=== PATIENT | male | born 1990 | race Caucasian/White ===

== ENCOUNTER → 2018-04-04 15:56 | Outpatient (CLI) | payer OTHER, MEDICAID, SELFPAY ==
--- NOTE | 2018-04-04 15:59 | DI.US.S_ITS ---
PROCEDURE: US SCROTUM INDICATIONS: TESTICULAR PAIN TECHNIQUE: Real-time scanning was performed of the scrotum and testicles, with image documentation. Color and pulse Doppler interrogation was performed of both testicles. COMPARISON: [facility], , TESTICLE IMAGING, 03/02/2017, 13:10. FINDINGS: Right: Testicle is normal in size at 2.3 x 3.3 x 5.0 cm, and homogenous in echotexture. Epididymis is normal in overall size and morphology. No hydrocele or varicoceles. Overlying scrotal skin is normal in thickness. Left: Testicle is normal in size at 2.4 x 3.6 x 4.8 cm, and homogeneous in echotexture. Epididymis is normal in overall size and morphology. No hydrocele or varicoceles. Overlying scrotal skin is normal in thickness. Doppler: Color and pulse Doppler demonstrate normal and symmetric arterial flow in both testicles. IMPRESSION: Normal testicular sonogram. As previously described, intermittent testicular torsion cannot be excluded on this exam. Imaging must be performed during episode of acute pain. Dictated by: Alfred Palacios M.D. on 04/04/2018 at 16:56 Approved by: Alfred Palacios M.D. on 04/04/2018 at 17:00
== END ==
PROVIDERS: Visit Provider Physician Assistant
DX: N50.819 Testicular pain, unspecified (principal)
CPT/HCPCS: 76870

== ENCOUNTER 2018-05-26 16:00 | Outpatient (RCR) | payer OTHER, MEDICAID, SELFPAY ==
--- NOTE | 2018-01-13 11:20 | PT.OTN ---
Current Diagnoses Stiffness of left ankle, not elsewhere classified (01/13/18) Muscle weakness (generalized) (01/13/18) Other abnormalities of gait and mobility (01/13/18) Nondisplaced fracture of fifth metatarsal bone, left foot, initial encounter for closed fracture (01/13/18) Transition note: On January 11, 2018 our therapy services consisting of Speech, Occupational, and Physical Therapy transitioned from the [employer] electronic documentation system to a new [employer] electronic documentation system.?? All documentation prior to January 11 can be found under [employer] saved data. From January 11 forward all medical record documentation will be in [employer] 6.1.
--- NOTE | 2018-01-14 11:03 | PT.OTN ---
Current Diagnoses Stiffness of left ankle, not elsewhere classified (01/14/18) Muscle weakness (generalized) (01/14/18) Other abnormalities of gait and mobility (01/14/18) Nondisplaced fracture of fifth metatarsal bone, left foot, initial encounter for closed fracture (01/14/18) Physical Therapy Treatment Note PT-OP-A Visit Information Start: 01/14/18 08:49 Freq: Status: Active Protocol: Activity Type Activity Date Activity User E-Sign Co-Sign Detail Recorded Client Recorded Date Recorded By Document 01/14/18 09:05 [facility] [email or web address] 01/14/18 11:02 [facility] 01/14/18 09:05 Out-Patient Physical Therapy Visit Information [Visit Information] -Visit Type Treatment Note -Visit Start Time 09:05 -Visit Stop Time 09:45 -Total Visit Minutes 40 -Visit Number 07/06 -Number of SAFETY INTERN Visits 0 PT-OP-C Subjective Start: 01/14/18 08:49 Freq: Status: Active Protocol: Activity Type Activity Date Activity User E-Sign Co-Sign Detail Recorded Client Recorded Date Recorded By Document 01/14/18 09:05 [facility] [email or web address] 01/14/18 11:02 [facility] 01/14/18 09:05 OP-PT Subjective [Patient Comments] -Patient Comments Pt reports overall he feels like he is doing well. He is not back to running or jumping per MD recommendations . Reports some pain in plantar fascia, but otherwise no pain on lateral L foot at or around surgical region. -Patient Reported Progress Improving PT-OP-K Range of Motion Start: 01/14/18 08:49 Freq: Status: Active Protocol: Activity Type Activity Date Activity User E-Sign Co-Sign Detail Recorded Client Recorded Date Recorded By Document 01/14/18 09:05 [facility] [email or web address] 01/14/18 11:02 [facility] 01/14/18 09:05 Ankle and Foot Goniometric Range of Motion [Ankle and Foot] Measured in Degrees Left Active -Ankle/Foot ROM WFL Yes -Testing Position Supine -Dorsiflexion with Knee Extended 12 -Plantarflexion 50 -Inversion 36 -Eversion 17 PT-OP-Q Treatments Start: 01/14/18 08:49 Freq: Status: Active Protocol: Activity Type Activity Date Activity User E-Sign Co-Sign Detail Recorded Client Recorded Date Recorded By Document 01/14/18 09:05 [facility] [email or web address] 01/14/18 11:02 [facility] 01/14/18 09:05 Therapeutic Exercises [Prone Exercises] 1 -Prone Exercise Name soleus stretch -Side left -Reps/Minutes 2 min. [Sitting Exercises] 1 -Sitting Exercise Name Ankle PF (L) -Side left -Resistance L5 band -Reps/Minutes 1x20 [Standing Exercises] 2 -Standing Exercise Name Step up ( lateral and cross-over) on 8 step -Side bilateral -Equipment Used Black with blue sports cord -Reps/Minutes 10 min. 1 -Standing Exercise Name Gastroc stretch -Side bilateral -Equipment Used ASTRID -Reps/Minutes 2 min Manual Therapy Treatment [Soft Tissue Mobilization] 3 -Body Location L achilles tendon -Mobilization Type Cross-Friction -Intensity/Depth Moderate -Body Position Prone -Comments 6 min. 2 -Body Location L plantar fascia -Mobilization Type Rolling -Intensity/Depth Deep -Body Position Supine -Comments 6 min. 1 -Body Location L gastoc and soleus -Mobilization Type Rolling -Intensity/Depth Deep -Body Position Prone -Comments 10 min [Joint Mobilizations] 1 -Joint 1st ray -Direction inf/superior -Grade III -Body Position Supine -Reps/Duration 2 min. PT-OP-T Assessment and Plan Start: 01/14/18 08:49 Freq: Status: Active Protocol: Activity Type Activity Date Activity User E-Sign Co-Sign Detail Recorded Client Recorded Date Recorded By Document 01/14/18 09:05 [facility] [email or web address] 01/14/18 11:02 [facility] 01/14/18 09:05 Physical Therapy Assessment [Assessment Summary] -Assessment Pt's L ankle ROM appears to be at normal ranges, and reports no pain with Theraband resistance performing ankle PF. Pt is yet to be cleared for plyometrics, running, and other activities which the pt could perform prior to this injury. Pt with hypomobility of the first ray on the L foot. Physical Therapy Plan [Frequency and Duration] -Frequency of Treatment 2x/Week -Duration of Treatment 2 months -Plan of Care Start Date 12/15/17 -Plan of Care End Date 02/13/18 [Next Visit Focus/Plan] -Next Visit Plan Progress LE strength, proprioception. Progress to higher level activities when cleared by
--- NOTE | 2018-05-06 09:45 | PT.OPPOC ---
Current Diagnoses Stiffness of left ankle, not elsewhere classified (05/06/18) Muscle weakness (generalized) (05/06/18) Other abnormalities of gait and mobility (05/06/18) Nondisplaced fracture of fifth metatarsal bone, left foot, initial encounter for closed fracture (05/06/18) Provider Visit Care Team Role Provider Type Emili Fisher MD Attending Provider Physician Primary Care Provider Specialty: Orthopedic Surgery Address: [address] [place] [address], [place], [address] Email: Plan Of Care PT-OP-T Assessment and Plan Start: 01/14/18 08:49 Freq: Status: Active Protocol: Document 05/06/18 09:45 [facility] (Rec: 05/08/18 17:19 [facility] [email or web address]) Physical Therapy Assessment Impairments Impairments Activity Tolerance ROM Strength Other Concerns Barriers to Rehabilitation prolonged/delayed healing Goals Three Impairment Recreational activities Group Home Goal (LTG) Return to full participation in basketball and running outdoors without pain or limitations to return to prior level of function. LTG Duration 6 weeks. Two Impairment L ankle weakness Associate Spa Director Goal (LTG) 5/5 ankle inversion and eversion with MMT for ankle stabilization and decrease recurring injury risk. LTG Duration 6 weeks One Impairment L ankle eversion ROM Associate Spa Director Goal (LTG) 15 degrees L ankle eversion AROM LTG Duration 6 weeks Assessment Summary Assessment Pt's L ankle eversion AROM presents outside of normal range, likely due to not participating in his ROM activities of his HEP and not participating in recreational activities. Pt's strength is still limited in eversion and eversion, and should continue to progress this with his HEP. Pt is not yet back to his prior recreational activity levels, and would greatly benefit from skilled physical therapy progression of exercise/activities to return to running and participating in basketball without restriction. Due to pt's recurring ankle sprains ( inversion sprains) he would benefit form an ankle brace/ stabilizer to assist with increased ankle stabilization until his ankle and LE stability is normalized. Physical Therapy Plan Frequency and Duration Frequency of Treatment 1x/Week Duration of Treatment 6 weeks Plan of Care Start Date 05/06/18 Plan of Care End Date 06/17/18 Therapeutic Interventions Therapeutic Interventions Home Exercise Program Joint Mobilizations Manual Therapy Neuromuscular Re-education Self-Care/Home Management Soft Tissue Mobilization Taping Therapeutic Activities Therapeutic Exercises Modalities Cold Pack/Ice Massage Electric Stimulation Hot Packs Ultrasound Other Referrals/Consults Referrals/Consults Recommended L ankle brace/stabilizer for return to recreational activities and assist with stabilization of L ankle. Next Visit Focus/Plan Next Note Type Treatment Note Next Visit Plan progress L ankle strength, light plyometrics->progressing as tolerated, treadmill/ running program initiation. Plan of Care Dates Plan of Care Start Date 05/06/18 Plan of Care End Date 06/17/18 Please Sign and Return: I have reviewed this Plan of Care and certify that the skilled therapy services above are required to meet the patient?s needs. Physician Signature Date Printed Name and Credentials Clinical Instructor Signature Printed Name and Credentials
--- NOTE | 2018-05-06 09:45 | PT.OTN ---
Current Diagnoses Stiffness of left ankle, not elsewhere classified (05/06/18) Muscle weakness (generalized) (05/06/18) Other abnormalities of gait and mobility (05/06/18) Nondisplaced fracture of fifth metatarsal bone, left foot, initial encounter for closed fracture (05/06/18) Physical Therapy Treatment Note PT-OP-A Visit Information Start: 01/14/18 08:49 Freq: Status: Active Protocol: Document 05/06/18 09:45 [facility] (Rec: 05/08/18 17:19 [facility] [email or web address]) Out-Patient Physical Therapy Visit Information Visit Information Visit Type Treatment Note Visit Start Time 09:00 Visit Stop Time 09:45 Total Visit Minutes 45 Visit Number 08/06 Number of LOGISTICS OPERATIONS MANAGER Visits 0 PT-OP-B Current Condition Start: 05/08/18 16:58 Freq: Status: Active Protocol: Document 05/06/18 09:45 [facility] (Rec: 05/08/18 17:19 [facility] [email or web address]) Current Condition History of Current Condition Onset Date 06/27/2017 Current Complaints inability to perform recreational activities History of Current Condition 27 y/o male s/p ORIF L 5th metatarsal fx with ORIF on after failed NWB/ conservative healing. Pt is using a bone stimulator. He reports his most recent surgeon visit showed that the lateral part of fx is healed, but still not full healing in bone of 5th metatarsal fx. He has been lifted from all precautions and is able to return to full recreational activity participation, but feels like he is still weak and wants assistance progressing back to full activity (basketball, snowboarding and running). Prior Treatments and Tests L 5th metatarsal fx s/p ORIF 09/02/2017 Treatment Goals Patient/Caregiver Goals return to recreational activities, improve overall strength and ROM. PT-OP-C Subjective Start: 01/14/18 08:49 Freq: Status: Active Protocol: Document 05/06/18 09:45 [facility] (Rec: 05/08/18 17:19 [facility] [email or web address]) OP-PT Subjective Patient Comments Patient Comments Pt wants to get back into running, basketball, and snowboarding, but hesitant due to his prolonged process and delayed healing. OP-PT Pain Assessment Comments Pain Comments denies any pain in L foot/ ankle. PT-OP-K Range of Motion Start: 01/14/18 08:49 Freq: Status: Active Protocol: Document 05/06/18 09:45 [facility] (Rec: 05/08/18 17:19 [facility] [email or web address]) Ankle and Foot Goniometric Range of Motion Ankle and Foot Measured in Degrees Left Active Ankle/Foot ROM WFL No Testing Position Supine Dorsiflexion with Knee Extended 15 Plantarflexion 55 Inversion 37 Eversion 8 Ankle and Foot ROM Limitations Comments joint hypomobility and tissue tightness. PT-OP-M Strength Start: 05/08/18 16:58 Freq: Status: Active Protocol: Document 05/06/18 09:45 [facility] (Rec: 05/08/18 17:19 [facility] [email or web address]) Ankle/Foot Strength Ankle and Foot Manual Muscle Testing Left Dorsiflexion (L4) 5 Normal Plantarflexion (S1) 5 Normal Inversion 4+ Good+ Eversion (S1) 4+ Good+ PT-OP-Q Treatments Start: 01/14/18 08:49 Freq: Status: Active Protocol: Document 05/06/18 09:45 [facility] (Rec: 05/08/18 17:19 [facility] [email or web address]) Gym Equipment Shuttle Recovery Unilateral Squats Resistance 125 Shuttle Recovery Platform Stable Reps/Time 20 L, 30 R Shuttle Balance 1 Details Red- DL squats, SL partial squat Reps/Duration 12 Sport Cord 1 Exercise Details lunges onto SHANNAN Cord/Resistance black/white Reps/Duration 10 each LE Therapeutic Exercises Standing Exercises 5 Standing Exercise Name Fitter Side bilateral Comments no UE assistance 4 Standing Exercise Name SL trampoline jumping Side bilateral 3 Standing Exercise Name hopping- 3 hops in a row Side bilateral Manual Therapy Treatment Joint Mobilizations 2 Joint subtalar joint (L) Direction eversion, inversion Grade IV Body Position Supine 1 Joint 1st ray Direction inf/superior Grade III Body Position Supine Other Other Manual Treatments L ankle ROM, MMT PT-OP-T Assessment and Plan Start: 01/14/18 08:49 Freq: Status: Active Protocol: Document 05/06/18 09:45 [facility] (Rec: 05/08/18 17:19 [facility] [email or web address]) Physical Therapy Assessment Impairments Impairments Activity Tolerance ROM Strength Other Concerns Barriers to Rehabilitation prolonged/delayed healing Goals Three Impairment Recreational activities Agriculture Science Teacher Goal (LTG) Return to full participation in basketball and running outdoors without pain or limitations to return to prior level of function. LTG Duration 6 weeks. Two Impairment L ankle weakness Fpc Goal (LTG) 5/5 ankle inversion and eversion with MMT for ankle stabilization and decrease recurring injury risk. LTG Duration 6 weeks One Impairment L ankle eversion ROM Agriculture Science Teacher Goal (LTG) 15 degrees L ankle eversion AROM LTG Duration 6 weeks Assessment Summary Assessment Pt's L ankle eversion AROM presents outside of normal range, likely due to not participating in his ROM activities of his HEP and not participating in recreational activities. Pt's strength is still limited in eversion and eversion, and should continue to progress this with his HEP. Pt is not yet back to his prior recreational activity levels, and would greatly benefit from skilled physical therapy progression of exercise/activities to return to running and participating in basketball without restriction. Due to pt's recurring ankle sprains ( inversion sprains) he would benefit form an ankle brace/ stabilizer to assist with increased ankle stabilization until his ankle and LE stability is normalized. Physical Therapy Plan Frequency and Duration Frequency of Treatment 1x/Week Duration of Treatment 6 weeks Plan of Care Start Date 05/06/18 Plan of Care End Date 06/17/18 Therapeutic Interventions Therapeutic Interventions Home Exercise Program Joint Mobilizations Manual Therapy Neuromuscular Re-education Self-Care/Home Management Soft Tissue Mobilization Taping Therapeutic Activities Therapeutic Exercises Modalities Cold Pack/Ice Massage Electric Stimulation Hot Packs Ultrasound Other Referrals/Consults Referrals/Consults Recommended L ankle brace/stabilizer for return to recreational activities and assist with stabilization of L ankle. Next Visit Focus/Plan Next Note Type Treatment Note Next Visit Plan progress L ankle strength, light plyometrics->progressing as tolerated, treadmill/ running program initiation.
--- NOTE | 2018-05-26 16:45 | PT.OTN ---
Current Diagnoses Stiffness of left ankle, not elsewhere classified (05/26/18) Muscle weakness (generalized) (05/26/18) Other abnormalities of gait and mobility (05/26/18) Nondisplaced fracture of fifth metatarsal bone, left foot, initial encounter for closed fracture (05/26/18) Physical Therapy Treatment Note PT-OP-A Visit Information Start: 01/14/18 08:49 Freq: Status: Active Protocol: Document 05/26/18 16:45 [facility] (Rec: 05/27/18 13:38 [facility] [email or web address]) Out-Patient Physical Therapy Visit Information Visit Information Visit Type Treatment Note Visit Start Time 16:05 Visit Stop Time 16:45 Total Visit Minutes 40 Visit Number 09/05 Number of WELFARE SPECIALIST Visits 0 PT-OP-B Current Condition Start: 05/08/18 16:58 Freq: Status: Active Protocol: Document 05/06/18 09:45 [facility] (Rec: 05/08/18 17:19 [facility] [email or web address]) Current Condition History of Current Condition Onset Date 06/27/2017 Current Complaints inability to perform recreational activities History of Current Condition 27 y/o male s/p ORIF L 5th metatarsal fx with ORIF on after failed NWB/ conservative healing. Pt is using a bone stimulator. He reports his most recent surgeon visit showed that the lateral part of fx is healed, but still not full healing in bone of 5th metatarsal fx. He has been lifted from all precautions and is able to return to full recreational activity participation, but feels like he is still weak and wants assistance progressing back to full activity (basketball, snowboarding and running). Prior Treatments and Tests L 5th metatarsal fx s/p ORIF 09/02/2017 Treatment Goals Patient/Caregiver Goals return to recreational activities, improve overall strength and ROM. PT-OP-C Subjective Start: 01/14/18 08:49 Freq: Status: Active Protocol: Document 05/26/18 16:45 [facility] (Rec: 05/27/18 13:38 [facility] [email or web address]) OP-PT Subjective Patient Comments Patient Comments Pt is back to working out at the gym. He does have some lateral ankle fatigue but denies pain. PT-OP-K Range of Motion Start: 01/14/18 08:49 Freq: Status: Active Protocol: Document 05/06/18 09:45 [facility] (Rec: 05/08/18 17:19 [facility] [email or web address]) Ankle and Foot Goniometric Range of Motion Ankle and Foot Measured in Degrees Left Active Ankle/Foot ROM WFL No Testing Position Supine Dorsiflexion with Knee Extended 15 Plantarflexion 55 Inversion 37 Eversion 8 Ankle and Foot ROM Limitations Comments joint hypomobility and tissue tightness. PT-OP-M Strength Start: 05/08/18 16:58 Freq: Status: Active Protocol: Document 05/06/18 09:45 [facility] (Rec: 05/08/18 17:19 [facility] [email or web address]) Ankle/Foot Strength Ankle and Foot Manual Muscle Testing Left Dorsiflexion (L4) 5 Normal Plantarflexion (S1) 5 Normal Inversion 4+ Good+ Eversion (S1) 4+ Good+ PT-OP-Q Treatments Start: 01/14/18 08:49 Freq: Status: Active Protocol: Document 05/26/18 16:45 [facility] (Rec: 05/27/18 13:38 [facility] [email or web address]) Gym Equipment Shuttle Recovery Unilateral Squats Resistance 125 Shuttle Recovery Platform Stable Shuttle Balance 1 Details Red- DL squats, SL partial squat; standing balance A/P and lateral Reps/Duration 10 Therapeutic Exercises Sitting Exercises 2 Sitting Exercise Name ankle eversion Side bilateral Resistance L4 Reps/Minutes 2x15 Standing Exercises 7 Standing Exercise Name ankle PF on BOSU (blue) 6 Standing Exercise Name lateral step up/cross over BOSU (blue Side bilateral 4 Standing Exercise Name SL trampoline jumping Side bilateral Comments B and unilateral Neuro Re-Education Treatment Balance Activities 1 Details BOSU- SL and DL balance PT-OP-T Assessment and Plan Start: 01/14/18 08:49 Freq: Status: Active Protocol: Document 05/26/18 16:45 [facility] (Rec: 05/27/18 13:38 [facility] [email or web address]) Physical Therapy Assessment Assessment Summary Assessment Pt's ROM is improved in the L ankle, but still fatiguing with higher level activities in the peroneals. Performed and reinforced importance of continuing ankle resisted training in conjunction with progressing gym work out. Pt tolerated session well, no reports of pain. Physical Therapy Plan Frequency and Duration Frequency of Treatment 1x/Week Duration of Treatment 6 weeks Plan of Care Start Date 05/06/18 Plan of Care End Date 06/17/18 Next Visit Focus/Plan Next Note Type Treatment Note Next Visit Plan re-assess objective measures, advance HEP
--- NOTE | 2018-09-22 15:44 | PT.OPDS ---
Current Diagnoses Stiffness of left ankle, not elsewhere classified (05/26/18) Muscle weakness (generalized) (05/26/18) Other abnormalities of gait and mobility (05/26/18) Nondisplaced fracture of fifth metatarsal bone, left foot, initial encounter for closed fracture (05/26/18) Provider Visit Care Team Role Provider Type Emili Fisher MD Attending Provider Physician Primary Care Provider Specialty: Orthopedic Surgery Address: [address] [place] [address], [place], [address] Email: Visit Number Visit Number 09/05 Discharge Summary PT-OP-B Current Condition Start: 05/08/18 16:58 Freq: Status: Active Protocol: Document 05/06/18 09:45 [facility] (Rec: 05/08/18 17:19 [facility] [email or web address]) Current Condition History of Current Condition Onset Date 06/27/2017 Current Complaints inability to perform recreational activities History of Current Condition 27 y/o male s/p ORIF L 5th metatarsal fx with ORIF on after failed NWB/ conservative healing. Pt is using a bone stimulator. He reports his most recent surgeon visit showed that the lateral part of fx is healed, but still not full healing in bone of 5th metatarsal fx. He has been lifted from all precautions and is able to return to full recreational activity participation, but feels like he is still weak and wants assistance progressing back to full activity (basketball, snowboarding and running). Prior Treatments and Tests L 5th metatarsal fx s/p ORIF 09/02/2017 Treatment Goals Patient/Caregiver Goals return to recreational activities, improve overall strength and ROM. PT-OP-C Subjective Start: 01/14/18 08:49 Freq: Status: Active Protocol: Document 05/26/18 16:45 [facility] (Rec: 05/27/18 13:38 [facility] [email or web address]) OP-PT Subjective Patient Comments Patient Comments Pt is back to working out at the gym. He does have some lateral ankle fatigue but denies pain. PT-OP-K Range of Motion Start: 01/14/18 08:49 Freq: Status: Active Protocol: Document 05/06/18 09:45 [facility] (Rec: 05/08/18 17:19 [facility] [email or web address]) Ankle and Foot Goniometric Range of Motion Ankle and Foot Measured in Degrees Left Active Ankle/Foot ROM WFL No Testing Position Supine Dorsiflexion with Knee Extended 15 Plantarflexion 55 Inversion 37 Eversion 8 Ankle and Foot ROM Limitations Comments joint hypomobility and tissue tightness. PT-OP-M Strength Start: 05/08/18 16:58 Freq: Status: Active Protocol: Document 05/06/18 09:45 [facility] (Rec: 05/08/18 17:19 [facility] [email or web address]) Ankle/Foot Strength Ankle and Foot Manual Muscle Testing Left Dorsiflexion (L4) 5 Normal Plantarflexion (S1) 5 Normal Inversion 4+ Good+ Eversion (S1) 4+ Good+ PT-OP-T Assessment and Plan Start: 01/14/18 08:49 Freq: Status: Active Protocol: Document 09/22/18 15:41 [facility] (Rec: 09/22/18 15:44 [facility] [email or web address]) Physical Therapy Assessment Assessment Summary Assessment Pt at this time has not been seen by physical therapy since May of 2018, and did not schedule any further follow-up PT appointments after 05/26/2018. Goals and objective measures were unable to be assessed/addressed, as pt is no longer attending physical therapy. At the time of d/c, pt was unrestricted by his surgeon to participate in recreational activities. It was recommended pt obtain an ankle stabilizer for return back to recreational activities, and a signed plan of care was returned by the surgeon's office. Attempted multiple times for pt to return to obtain, but has yet to physically come into the clinic for fitting of his ankle stabilizer. Pt will be d /c from physical therapy at this time, as he did not complete the most recent plan of care. Physical Therapy Plan Discharge Physical Therapy Discharge Reasons No Longer Attending PT
== END 2018-11-02 10:22 ==
LOC: PHYS 16:00
PROVIDERS: PCP Orthopaedic Surgery Foot and Ankle Surgery; Visit Provider Orthopaedic Surgery Foot and Ankle Surgery
DX: S92.355A Nondisplaced fracture of fifth metatarsal bone, left foot, initial encounter for closed fracture (principal); R26.89 Other abnormalities of gait and mobility; M25.672 Stiffness of left ankle, not elsewhere classified; M62.81 Muscle weakness (generalized)
CPT/HCPCS: 97110; 97112; 97140